=== PATIENT | male | born 1985 | race Caucasian/White ===

== ENCOUNTER 2019-10-14 20:13 | Emergency (ER) | payer MEDICARE, OTHER | END 2019-10-14 20:50 | LOC: ERS 20:13 | DX: F10.129 Alcohol abuse with intoxication, unspecified (principal); F17.210 Nicotine dependence, cigarettes, uncomplicated; F41.9 Anxiety disorder, unspecified; F31.9 Bipolar disorder, unspecified; V89.2XXA Person injured in unspecified motor-vehicle accident, traffic, initial encounter | CPT/HCPCS: 99283 ==

== ENCOUNTER 2020-01-16 21:39 | Inpatient (IN) | payer MEDICARE, OTHER ==
[2020-01-16] MEDS ORDERED: Rocuronium Bromide 10 MG/ML (10ML VIAL) ONE ×2 (21:48→23:25)
[2020-01-16] MEDS ORDERED: Ketamine 50 MG/ML (10ML VIAL) ONE (21:48)
[2020-01-16] MEDS ORDERED: Propofol 1,000 MG/100 ML VIAL IV ONE (21:50)
[2020-01-16 22:15] LABS: Actual Bicarbonate (HCO3a) 26.3 mEq/L (22-28); Analyzer IN Cardio ER; Base Excess (BEa) -5.1 mEq/L (-2.0 to +3.0); Calcium, Ionized (arterial) 1.15 mmol/L (1.12-1.30); Hemoglobin (Hb) 15.1 g/dL (14.0-18.0); Potassium - ABG Lab 3.91 mmol/L (3.70-5.30); pH, Arterial 7.13 (7.35-7.45)
[2020-01-16 22:16] LABS: CO2 Tension 80.8 mmHg (35.0-45.0); O2 Tension (PaO2), arterial 44.3 mmHg (80.0-100.0); Puncture Site RBA
--- NOTE | 2020-01-16 22:34 | RAD ---
Portable frontal chest radiograph: 01/16/2020 COMPARISON: 12/09/2017 HISTORY: Status post intubation FINDINGS: This study is performed at 9:39 PM. There is an endotracheal tube projecting over the trach eal air column terminating at the level of the clavicular heads. There is hazy pleural and parenchymal opacity within the left base. There is complete opacification of the right hemithorax, no nspecific. IMPRESSION: Endotracheal tube in place. Nonspecific pleural and parenchymal opacity in the left base and nonspecific complete opacification of the right hemithorax.
--- NOTE | 2020-01-16 22:36 | RAD ---
Frontal radiograph chest: 01/16/2020 at 9:41 PM HISTORY: Adjustment of tubes FINDINGS: This study is compared to the prior study performed 2 minutes prior. The endotracheal tube has been removed. There is a new enteric tube extending into the left upper quadrant. Nonspecific complete opacification of the right hemithorax and dense pleural and parenchymal opacity in the left base persists. IMPRESSION: Interval placement of enteric tube. Removal of endotracheal tube.
--- NOTE | 2020-01-16 22:37 | RAD ---
Frontal radiograph chest: 01/16/2020 at 10:07 PM Comparison made to prior study performed 01/16/2020 at 9:41 PM HISTORY: Reintubation, chest tube placement FINDINGS: There has been interval placement of a chest tube overlying the right lung base. There is a right pneumothorax centrally, incompletely assessed on this examination, with lobulated pleural and parenchymal opacity seen peripherally throughout the right hemithorax suggesting completely colla psed right lung, underlying pleural fluid, and/or underlying mass lesion. New endotracheal tube in place, terminating near the clavicular heads. Stable pleural-parenchymal opacity in the left base IMPRESSION: Interval placement of endotracheal tube and right chest tube with right-sided pneumothora x and nonspecific peripheral lobulated density throughout the right hemithorax. Follow-up CT advised.
--- NOTE | 2020-01-16 22:39 | RAD ---
Frontal radiograph chest: 01/16/2020 10:22 PM HISTORY: Evaluate chest following tube placement FINDINGS: When compared to the prior study performed at 10:07 PM, endotracheal tube and nasogastric t ube are stable. The right chest tube has been repositioned, now extending into the right lung apex. There is persistent left basilar pleural and parenchymal opacity. There is a right-sided pneumothorax present with peripheral lobulated soft tissue density within the right hemithorax suggesting volume loss, loculated pleural fluid, and/or underlying mass lesion. Follow-up CT suggested. IMPRESSION: Lines and tubes as above. Right-sided pneumothorax. Lobulated pleural and parenchymal opa city in the left base and within the right hemithorax as above.
[2020-01-16 22:48] LABS: Amphetamine Detected (NotDetected); Barbiturates Screen Not Detected (NotDetected); Benzodiazepine Screen Detected (NotDetected); Cocaine Metabolite Screen Not Detected (NotDetected); Medtox Control Line Valid? VALID (VALID); Medtox Reader # READER 4; Methadone Not Detected (NotDetected); Methamphetamine Not Detected (NotDetected); Opiate Screen Not Detected (NotDetected); Oxycodone Screen Not Detected (NotDetected); Phencyclidine (PCP) Not Detected (NotDetected); THC/Cannabinoid Screen Not Detected (NotDetected); Tricyclic Screen Not Detected (NotDetected)
[2020-01-16] MEDS ORDERED: Midazolam HCl 5 mg/ml Vial ONE (23:25)
[2020-01-16 23:33] LABS: PTT 28.7 sec (22.9-36.1); Prothrombin Time 13.2 sec (12.0-14.7)
[2020-01-16] MEDS ORDERED: Piperacillin/Tazobactam 3.375 GM VIAL ONE (23:37)
[2020-01-16 23:48] LABS: Acetaminophen Less than 6.0 mcg/mL (10.0-30.0); Alcohol Less than 10 mg/dL (Less than 10); CK (CPK) 133 U/L (30-200); Magnesium 1.7 mg/dL (1.6-2.6); Salicylate Less than 8.0 mg/dL (15.0-30.0)
[2020-01-16 23:50] LABS: ALT (SGPT) 25 U/L (8-55); AST (SGOT) 25 U/L (5-34); Albumin 4.5 g/dL (3.5-5.0); Alkaline Phosphatase 94 U/L (40-110); Anion Gap 16 mmol/L (10-20); BUN (Urea Nitrogen) 7 mg/dL (8.9-20.6); Bilirubin, Total 0.2 mg/dL (0.2-1.2); Calc. Creatinine Clearance 0 mL/min (70-130); Carbon Dioxide 21 mmol/L (22-29); Chloride 104 mmol/L (98-107); Estimated GFR-MDRD Greater than 90; Glucose 209 mg/dL (70-105); Lipase 30 U/L (8-78); Potassium 4.9 mmol/L (3.5-5.1); Protein, Total 7.5 g/dL (6.0-8.3); Sodium 136 mmol/L (136-145)
[2020-01-16 23:53] LABS: Hemoglobin 15.1 g/dL (14.0-18.0); Mean Corpuscular HGB CONC 31.7 g/dL (32.0-36.0); Mean Corpuscular Hemoglobin 23.6 pg (27.0-31.0); Mean Corpuscular Volume 74.3 fL (78.0-98.0); Mean Platelet Volume 9.7 fL (7.4-10.4); Platelet Count 332 thou/uL (130-400); RBC Distribution Width 12.9 % (11.5-14.5); Red Blood Cell (RBC) Count 6.42 mill/uL (4.70-6.10); White Blood Cell (WBC) Count 26.5 thou/uL (4.8-10.8)
[2020-01-16 23:54] LABS: Band 17 % (5-11); Eosinophils 2 % (0-10); Lymphocytes 13 % (21-51); MDiff Complete? YES; Microcytosis SLIGHT = 6-15 cells (100X) (0-5/hpf); Monocytes 2 % (0-10); Neutrophil 66 % (42-75); Nucleated RBC 1 % (0); Platelet Morphology Comment Appears Adequate
[2020-01-17] MEDS ORDERED: Ventilator Sedation Protocol 1 EACH FS SCH (00:27)
[2020-01-17] MEDS ORDERED: Fentanyl BOLUS 250 ML IVPB PRN (00:45)
[2020-01-17] MEDS ORDERED: Propofol BOLUS 1,000 MG/100 ML VIAL IV PRN (00:45)
[2020-01-17] MEDS ORDERED: DISCONTINUE PREVIOUS NARCOTIC PAIN MEDICATIONS AND BENZODIAZEPINES FS SCH (00:45)
[2020-01-17] MEDS ORDERED: Morphine 2 MG/ML VIAL SLOW IVP PRN (00:45)
[2020-01-17] MEDS: Sodium Chloride 0.9% 1,000 ML IV SCH ×4 (01:44→20:01)
[2020-01-17] MEDS: Propofol 1,000 MG/100 ML VIAL IV PRN ×7 (01:44→21:42)
--- NOTE | 2020-01-17 01:45 | CON ---
DATE OF CONSULTATION: 01/17/2020 CONSULTING PHYSICIAN: Marinaist . REASON FOR CONSULTATION: Intubated patient with opacification of the right chest. This encompassed 1 hour of critical care time that took place 1059pm to 1159pm 01/15. HISTORY OF PRESENT ILLNESS: A 34-year-old male, who was apparently found down at home in vomitus debris. He was brought to the emergency room and intubated for unresponsiveness. Initially, it was noted that his right chest was opacified and the emergency room physician placed a chest tube on that side. He felt that the initial chest tube might have been underneath the diaphragm, so he took that out and replaced it in a more cephalad position. Despite that, patient's x-ray continued to show whiteout and I was called to evaluate the patient for emergent bronchoscopy. On my arrival to the emergency room, the patient's O2 saturation was in the mid 60s. I did a bronchoscopy on him with removal of copious food debris. It took about an hour to remove all the debris. PAST MEDICAL HISTORY: 1. K2 abuse. 2. Methamphetamine abuse. 3. Suicidal ideation. 4. Bipolar disorder. 5. Seizure disorder. PAST SURGICAL HISTORY: None. MEDICATIONS: Prior to admission, not known. ALLERGIES: NONE. SOCIAL HISTORY: Methamphetamine abuser, K2 abuser. Do not know about alcohol or tobacco use. FAMILY MEDICAL HISTORY: Apparently unremarkable. REVIEW OF SYSTEMS: Cannot be obtained as the patient is intubated. PHYSICAL EXAMINATION: VITAL SIGNS: Heart rate 115, blood pressure 105/73, O2 saturation 90%, and temperature 98. GENERAL: He is a disheveled appearing male. He is intubated. He has multiple tattoos over skin. HEENT: Pupils are equal, round, and reactive to light. Oropharynx is clear. NECK: No adenopathy or JVD. LUNGS: Diminished breath sounds on the right compared to the left. CARDIOVASCULAR: S1 and S2. Tachycardic. ABDOMEN: Soft and nontender. EXTREMITIES: No clubbing, cyanosis, or edema. X-RAYS: Reviewed. I actually doubt that the first two placement was innerabdominal based on the appearance of the x-ray, but I completely understand why it was taken out and replaced in a more cephalad position. LABORATORY DATA: White blood cell count 26.5, hematocrit 47, and platelet count 332. INR 1.0 and PTT 28.7. PH 7.13, pCO2 of 80, and pO2 of 44 and that was before bronchoscopy. Sodium 136, potassium 4.9, chloride 104, CO2 of 21, BUN 7, and creatinine 0.9. Lactate 1.4, total bilirubin 0.2. Drug screen showed amphetamines and benzos. ASSESSMENT: 1. Aspiration of food particles. 2. Likely substance overdose. 3. Respiratory failure requiring mechanical ventilation. 4. Right-sided chest tube. 5. Acute respiratory distress syndrome. PLAN: 1. IV antibiotics with Zosyn. 2. Mechanical ventilation, bilevel. 3. Sedation. 4. GI prophylaxis with Protonix. 5. Second-look bronchoscopy. Job ID: [id number] [facility]
[2020-01-17] MEDS: Lorazepam 2 MG/ML VIAL SLOW IVP PRN ×7 (01:47→23:46)
--- NOTE | 2020-01-17 01:51 | OP ---
DATE OF PROCEDURE: 01/16/2020 PROCEDURE PERFORMED: Emergent bronchoscopy. INDICATIONS FOR PROCEDURE: This is a 34-year-old male who was found down on presentation to the ER, he had complete opacification of his right chest that did not re-expand of chest tube placement by the emergency room physician. ANESTHESIA: The patient was on mechanical ventilation and sedated with propofol and paralyzed with rocuronium. DESCRIPTION OF PROCEDURE: While the patient was on mechanical ventilation, an adapter was placed at the tip of the endotracheal tube. A 2.8 Ambu bronchoscope was placed into the endotracheal tube with the patient on 100% oxygen. His ET tube was clear. Dina was sharp. There was a large amount of food debris in the right mainstem bronchus extending into the right upper lobe, right middle lobe, and right lower lobe. I used copious irrigation with normal saline, morcellation with forceps and retrieval with a urology basket to remove as much of the food debris as I could until it seemed clear. The left mainstem bronchus was clear, but there were some food debris present in left lower lobe, this was also removed with forceps. The patient tolerated the procedure well with improvement in his oxygenation from mid 60s to low 90s. He will likely need a repeat bronchoscopy tomorrow morning. Job ID: [id number]
[2020-01-17] MEDS: Vecuronium 10 MG VIAL IVP PRN ×2 (01:52→03:44)
[2020-01-17] MEDS: Sterile Water 10 ML VIAL IVP PRN ×2 (01:52→03:44)
[2020-01-17] MEDS: fentaNYL Citrate/PF 2,000 MCG in Sodium Chloride 0.9% 60 ML IV SCH ×2 (02:11→18:14)
[2020-01-17 02:20] VITALS: BMI 30.8
[2020-01-17 03:39] LABS: Anion Gap 16 mmol/L (10-20); BUN (Urea Nitrogen) 8 mg/dL (8.9-20.6); Calc. Creatinine Clearance 165 mL/min (70-130); Calcium 8.1 mg/dL (7.8-10.44); Carbon Dioxide 22 mmol/L (22-29); Chloride 106 mmol/L (98-107); Estimated GFR-MDRD Greater than 90; Glucose 119 mg/dL (70-105); Potassium 4.7 mmol/L (3.5-5.1); Sodium 139 mmol/L (136-145)
--- NOTE | 2020-01-17 03:44 | PDOC.HHP ---
Hospitalist HPI - History of Present Illness Respiratory failure, aspiration History of Present Illness: Patient is a 34 year old male with PMH anxiety, bipolar disorder, depression who presents to ED intubated after aspiration event at home. Patient was found unresponsive in backyard by his mother, presumably after using substances, unknown how long he was on ground, patient was rolled over and vomited with significant aspiration of emesis, EMS called and patient was intubated by EMS. He required ketamine, versed, rocuronium for sedation/paralysis. In ED, CXR w/ opacified R hemithorax, no significant breath sounds on that side, Dr South called and performed emergent bronchoscopy which reportedly revealed significant emesis which was aspirated. A chest tube was also placed on R side. Patient oxy genation improved after bronchoscopy. Patient was given empiric zosyn, admitted to ICU for further care. With regards to social history, patient drinks socially, known abuse of benzodiazepine 1 month ago, also has used K2, he smokes cigarettes, UDS positive for methamphetamine in ED. Hospitalist ROS - Review of Systems ROS unobtainable: due to endotracheal tube - Medication Medications: Active Medications Generic Name Dose Route Start Last Admin Trade Name Freq PRN Reason Stop Dose Admin Albuterol/Ipratropium 3 ml 01/17/20 02:30 01/17/20 02:47 Ipratropium/Albuterol Sulfate 3 Ml Neb NEB 3 ml [id number] GEORGI Administration Sodium Chloride 1,000 mls @ 125 mls/hr 01/17/20 00:30 01/17/20 01:44 Normal Saline 0.9% IV 1,000 mls .Q8H GEORGI Administration Fentanyl Citrate 2,000 mcg/ 100 mls @ 0 mls/hr 01/17/20 00:45 01/17/20 02:11 Sodium Chloride IV 02/16/20 00:45 100 mls INF GEORGI Administration Protocol Per Protocol Lorazepam 2 mg 01/17/20 00:45 01/17/20 01:47 Lorazepam 2 Mg/Ml Vial SLOW IVP 02/16/20 00:45 2 mg Q1H PRN Administration Breakthrough agitation Propofol 1,000 mg 01/17/20 00:45 01/17/20 01:44 Propofol 1,000 Mg/100 Ml Vial IV 02/16/20 00:45 1,000 mg INF PRN Administration TO ACHIEVE GOAL RASS Protocol Sterile Water 10 ml 01/17/20 00:41 01/17/20 01:52 Sterile Water 10 Ml Vial IVP 10 ml PRN PRN Administration NEEDED FOR RECONSTITUTION Vecuronium [place] 10 mg 01/17/20 00:31 01/17/20 01:52 Vecuronium 10 Mg Vial IVP 10 mg Q30MIN PRN Administration Agitation Hospitalist History - Past Medical History Other Medical History: anxiety, bipolar, depression - Past Surgical History Past Surgical History: reports: no pertinent history - Family History Family History: reports: no pertinent history - Social History Other Social History: patient drinks socially, known abuse of benzodiazepine 1 month ago, also has used K2, he smokes cigarettes, UDS positive for methamphetamine in ED. - Exam General - other findings: intubated, sedated Eye: PERRL, anicteric sclera ENT: normocephalic atraumatic, no oropharyngeal lesions, moist mucosa Neck: supple, symmetric, no JVD, no thyromegaly, no lymphadenopathy, no carotid bruit Heart: RRR, no murmur, no gallops, no rubs, normal peripheral pulses Respiratory: CTAB, no wheezes, no rales, no ronchi, normal chest expansion, no tachypnea, normal percussion Gastrointestinal: soft, non-tender, non-distended, normal bowel sounds, no palpable masses, no hepatomegaly, no splenomegaly, no bruit Extremities: no cyanosis, no clubbing, no edema Skin: normal turgor, no lesions, no rashes Neurological - other findings: sedated, RASS -2 Musculoskeletal: normal tone, normal strength, no muscle wasting Psychiatric - other findings: unable to evaluate Hospitalist Results - Labs Result Diagrams: 01/16/20 23:18 01/17/20 03:06 Lab results: WBC 26.5 thou/uL (4.8-10.8) H 01/16/20 23:18 Hgb 15.1 g/dL (14.0-18.0) 01/16/20 23:18 Hct 47.7 % (42.0-52.0) 01/16/20 23:18 MCV 74.3 fL (78.0-98.0) L 01/16/20 23:18 Plt Count 332 thou/uL (130-400) 01/16/20 23:18 Band Neuts % (Manual) 17 % (5-11) H 01/16/20 23:18 ABG pH 7.13 (7.35-7.45) L* 01/16/20 22:04 ABG pCO2 80.8 mmHg (35.0-45.0) H* 01/16/20 22:04 ABG pO2 44.3 mmHg (80.0-100.0) L* 01/16/20 22:04 Sodium 139 mmol/L (136-145) 01/17/20 03:06 Potassium 4.7 mmol/L (3.5-5.1) 01/17/20 03:06 Chloride 106 mmol/L (98-107) 01/17/20 03:06 Carbon Dioxide 22 mmol/L (22-29) 01/17/20 03:06 BUN 8 mg/dL (8.9-20.6) L 01/17/20 03:06 Creatinine 0.92 mg/dL (0.7-1.3) 01/17/20 03:06 Glucose 119 mg/dL (70-105) H 01/17/20 03:06 Lactic Acid 1.4 mmol/L (0.5-2.2) 01/16/20 23:18 Calcium 8.1 mg/dL (7.8-10.44) 01/17/20 03:06 Total Bilirubin 0.2 mg/dL (0.2-1.2) 01/16/20 23:18 AST 25 U/L (5-34) 01/16/20 23:18 ALT 25 U/L (8-55) 01/16/20 23:18 Alkaline Phosphatase 94 U/L (40-110) 01/16/20 23:18 Creatine Kinase 133 U/L (30-200) 01/16/20 23:18 Troponin I Less than 0.010 ng/mL (< 0.028) 01/16/20 23:18 Serum Total Protein 7.5 g/dL (6.0-8.3) 01/16/20 23:18 Albumin 4.5 g/dL (3.5-5.0) 01/16/20 23:18 Lipase 30 U/L (8-78) 01/16/20 23:18 Additional comment: VITAL SIGNS MonJan 17, 2020 00:39 PRANAV Brito, Robin BP: 109/72 (Left Arm) MAP: 84 Pulse: 103 Resp: 16 O2 sat: 92 on (Ventilator) Time: 01/17/2020 00:39. ED documents, labs, imaging reports reviewed Hospitalist H&P A/P - Plan Plan: Patient is a 34 year old male with PMH anxiety, bipolar disorder, depression who presents to ED intubated after aspiration event at home. # acute hypoxic and hypercapneic respiratory failure # aspiration pneumonitis and possible pneumonia # substance abuse - methamphetamine and benzodiazepine on UDS, also suspected K2 use # leukocysosis - suspect reactive to above stressors Patient was found unresponsive in backyard by his mother, presumably after using substances, unknown how long he was on ground, patient was rolled over and vomited with significant aspiration of emesis, EMS called and patient was intubated by EMS. He required ketamine, versed, rocuronium for sedat ion/paralysis. In ED, CXR w/ opacified R hemithorax, no significant breath sounds on that side, Dr South called and performed emergent bronchoscopy which reportedly revealed significant emesis which was aspirated. A chest tube was also placed on R side. Patient oxygenation improved after bronchoscopy. Patient was given empiric zosyn, admitted to ICU for further care. With regards to social history, patient drinks socially, known abuse of benzodiazepine 1 month ago, also has used K2, he smokes cigarettes, UDS positive for methamphetamine and benzodiazepine in ED. - admit to ICU - continue zosyn, steroids - appreciate pulmonary Dr South assistance, likely to need repeat bronchoscopy tomorrow # hyperglycemia - no dx of DM, will start SSI and order A1C # history of bipolar disorder, anxiety, psychiatric disorders and reported history of suicide ideation - resume home medications once appropriate # DVT/GI ppx Full code
[2020-01-17] MEDS ORDERED: Dextrose 5% in Water 1,000 ML IV PRN (03:55)
[2020-01-17] MEDS ORDERED: Dextrose 50% Abboject 50 ML SYRINGE SLOW IVP PRN (03:55)
[2020-01-17] MEDS: Piperacillin/Tazobactam 3.375 GM in Sodium Chloride 0.9% 100 ML IVPB SCH ×4 (05:14→23:46)
[2020-01-17] MEDS: methylPREDNISolone Sod Succ 40 MG VIAL IVP SCH ×4 (05:14→23:47)
[2020-01-17] MEDS ORDERED: Magnesium 2 GM/50 ML 2 GM in Premix Bag 1 BAG IVPB SCH (06:45)
[2020-01-17] MEDS ORDERED: Electrolyte Replacement Protocol FS PRN (06:45)
[2020-01-17 07:18] LABS: Actual Bicarbonate (HCO3a) 20.8 mEq/L (22-28); Base Excess (BEa) -3.2 mEq/L (-2.0 to +3.0); CO2 Tension 34.3 mmHg (35.0-45.0); Calcium, Ionized (arterial) 1.09 mmol/L (1.12-1.30); Carboxyhemoglobin (COHb) 0.3 gm% (0.0-3.0); Hemoglobin (Hb) 14.3 g/dL (14.0-18.0); O2 Tension (PaO2), arterial 87.3 mmHg (80.0-100.0); Potassium - ABG Lab 4.17 mmol/L (3.70-5.30)
[2020-01-17 07:19] LABS: Puncture Site RRA
[2020-01-17 07:20] LABS: ALV-art Gradient 226.325 mmHg (0-20)
--- NOTE | 2020-01-17 08:27 | OP ---
DATE OF PROCEDURE: 01/17/2020 PROCEDURE PERFORMED: Bronchoscopy. PREOPERATIVE DIAGNOSIS: Right lung atelectasis secondary to massive aspiration. POSTOPERATIVE DIAGNOSIS: Right lung atelectasis secondary to massive aspiration. ANESTHESIA: None. DESCRIPTION OF PROCEDURE: A 2.8 Olympus bronchoscope was inserted down the patient's endotracheal tube while he was on volume-cycled ventilation. This was a second-look procedure after initially removing most of the debris last night. There were scant mucoid secretions present in the right lower lobe. These were lavaged with saline until clear. The right upper lobe was clear. The right middle lobe was clear. The right mainstem bronchus was clear. The rebekah was sharp. The left lower lobe had some scant mucoid secretions, which were lavaged with saline and aspirated until completion. The left upper lobe was clear. The left mainstem bronchus was clear. The patient tolerated the procedure well. Job ID: [id number]
--- NOTE | 2020-01-17 08:36 | PRG ---
DATE OF SERVICE: 01/17/2020 35 minutes of critical care time. SUBJECTIVE: The patient remains intubated on mechanical ventilation. He will wake up once sedation is lessened. OBJECTIVE: VITAL SIGNS: Temperature 98.7, pulse 90, blood pressure 118/73, O2 saturation 100%. Intake 624, output 680. HEENT: Unremarkable. NECK: No JVD. LUNGS: Clear breath sounds bilaterally. CARDIAC: S1 and S2. Regular. ABDOMEN: Soft. EXTREMITIES: No edema. DIAGNOSTIC STUDIES: Chest x-ray shows no leak. LABORATORY DATA: ABG; pH 7.40, pCO2 of 34, pO2 of 87 on bilevel rate 22, high pressure 30, low pressure 12, FiO2 of 50%. Sodium 139, potassium 4.7, chloride 106, CO2 of 22, BUN 8, creatinine 0.9, glucose 116. Chest x-ray showed improvement in the right-sided atelectasis. He has infiltrative change in the base. ASSESSMENT: 1. Massive aspiration with right lung atelectasis. 2. Chest tube placement on the right by emergency room physician who was thinking the patient had a massive right effusion. 3. Acute respiratory failure requiring mechanical ventilation. PLAN: 1. Performed a second-look bronchoscopy today and there were some scant mucoid secretions present bilaterally, which were lavaged with saline, aspirated. 2. I would like to leave the chest tube in for another day or two. There is a question of whether or not, first chest tube was placed through the diaphragm into the abdomen. Therefore, I would like to give it a day or so and make sure no development of infection in that space before we pull the tube out. 3. Continue antibiotics. 4. I have switched him over to SIMV ventilation. 5. We will continue low-dose steroids, nebulization treatments, and IV fluids. Job ID: [id number]
[2020-01-17] MEDS: Metoclopramide HCl 10 MG/2 ML VIAL IVP SCH ×3 (09:09→20:00)
[2020-01-17] MEDS: Pantoprazole 40 MG VIAL IVP SCH (09:10)
--- NOTE | 2020-01-17 09:10 | RAD ---
CHEST 1 VIEW PORTABLE: Date: 01/17/2020 HISTORY: Pneumonia. FINDINGS: Right chest tube in place. Possible very tiny residual pneumothorax. Alveolar parenchymal changes in the right lung, more confluent in the right base, as well as some patchy left perihilar parenchymal c hanges. NG tube and endotracheal tube in satisfactory location. IMPRESSION: Evidence for patchy alveolar pneumonia, more confluent in the right base. Possible very tiny apical p neumothorax, but no significant residual pneumothorax. POS: RRE
[2020-01-17 10:04] LABS: Mean Corpuscular HGB CONC 31.3 g/dL (32.0-36.0); Mean Corpuscular Volume 73.6 fL (78.0-98.0); Mean Platelet Volume 10.1 fL (7.4-10.4); Platelet Count 241 thou/uL (130-400); RBC Distribution Width 12.7 % (11.5-14.5); Red Blood Cell (RBC) Count 5.63 mill/uL (4.70-6.10); White Blood Cell (WBC) Count 18.9 thou/uL (4.8-10.8)
[2020-01-17] MEDS: HumaLOG 300 UNITS/3 ML VIAL SC PRN ×3 (12:02→20:06)
[2020-01-17 12:50] LABS: SARS-CoV-2 MS2 Positive; SARS-CoV-2 N Gene Negative; SARS-CoV-2 S Gene Negative; SARS-CoV-2 by NAA Not Detected (NotDetected); SARS-CoV-2 orf1ab Negative
--- NOTE | 2020-01-17 15:24 | PDOC.HOSPP ---
- Subjective Encounter Date: 01/17/20 Encounter Time: 09:00 Subjective: The patient is still intubated. He had second look bronchoscopy this morning. THe patient was thrashing around was reoriented to where he was . - Objective Vital Signs & Weight: Vital Signs (12 hours) Temp Pulse Resp BP Pulse Ox 01/17/20 14:00 22 H 01/17/20 12:46 87 93/52 L 01/17/20 12:00 99.2 F 22 H 100 01/17/20 10:42 86 01/17/20 10:00 22 H 01/17/20 08:00 22 H 98 01/17/20 07:23 92 01/17/20 07:00 98.7 F 01/17/20 06:00 22 H 01/17/20 04:00 99.7 F H 22 H Weight Admit Weight 227 lb 4.745 oz Weight 227 lb 4.745 oz Most Recent Monitor Data Heart Rate from ECG 90 NIBP 114/63 NIBP BP-Mean 80 Respiration from ECG 22 SpO2 100 I&O: 01/16/20 01/17/20 01/18/20 06:59 06:59 06:59 Intake Total 624 200 Output Total 680 865 Balance -56 -665 Result Diagrams: 01/17/20 09:47 01/17/20 03:06 Additional Labs: Accuchecks 01/17/20 11:52 POC Glucose 161 H Hospitalist ROS - Review of Systems Constitutional: denies: fever, chills - Medication Medications: Active Medications Generic Name Dose Route Start Last Admin Trade Name Freq PRN Reason Stop Dose Admin Albuterol/Ipratropium 3 ml 01/17/20 02:30 01/17/20 10:41 Ipratropium/Albuterol Sulfate 3 Ml Neb NEB 3 ml [id number] GEORGI Administration Sodium Chloride 1,000 mls @ 125 mls/hr 01/17/20 00:30 01/17/20 11:19 Normal Saline 0.9% IV 1,000 mls .Q8H GEORGI Administration Piperacillin Sod/Tazobactam 100 mls @ 200 mls/hr 01/17/20 06:00 01/17/20 11:19 Sod 3.375 gm/ Sodium Chloride IVPB 100 mls Q6HR GEORGI Administration Fentanyl Citrate 2,000 mcg/ 100 mls @ 0 mls/hr 01/17/20 00:45 01/17/20 02:11 Sodium Chloride IV 02/16/20 00:45 100 mls INF GEORGI Administration Protocol Per Protocol Thiamine HCl 100 mg/ Sodium 51 mls @ 100 mls/hr 01/17/20 09:00 01/17/20 09:09 Chloride IVPB 01/20/20 21:31 51 mls Q12HR GEORGI Administration Insulin Human Lispro 0 units 01/17/20 03:55 01/17/20 12:02 Humalog 300 Units/3 Ml Vial SC 2 unit .MILD SLIDING SCALE PRN Administration Mild Correctional Scale Lorazepam 2 mg 01/17/20 00:45 01/17/20 12:47 Lorazepam 2 Mg/Ml Vial SLOW IVP 02/16/20 00:45 2 mg Q1H PRN Administration Breakthrough agitation Methylprednisolone Sodium Succinate 20 mg 01/17/20 06:00 01/17/20 11:19 Methylprednisolone Sod Succ 40 Mg Vial IVP 20 mg Q6HR GEORGI Administration Metoclopramide HCl 10 mg 01/17/20 09:00 01/17/20 15:14 Metoclopramide Hcl 10 Mg/2 Ml Vial IVP 10 mg Q6H GEORGI Administration Pantoprazole Sodium 40 mg 01/17/20 09:00 01/17/20 09:10 Pantoprazole 40 Mg Vial IVP 40 mg DAILY GEORGI Administration Propofol 1,000 mg 01/17/20 00:45 01/17/20 15:14 Propofol 1,000 Mg/100 Ml Vial IV 02/16/20 00:45 1,000 mg INF PRN Administration TO ACHIEVE GOAL RASS Protocol Sterile Water 10 ml 01/17/20 00:41 01/17/20 03:44 Sterile Water 10 Ml Vial IVP 10 ml PRN PRN Administration NEEDED FOR RECONSTITUTION Vecuronium [place] 10 mg 01/17/20 00:31 01/17/20 03:44 Vecuronium 10 Mg Vial IVP 10 mg Q30MIN PRN Administration Agitation - Exam General - other findings: intubated, follows commands Eye: PERRL, anicteric sclera ENT: normocephalic atraumatic, no oropharyngeal lesions Neck: no JVD Heart: RRR, no murmur, no gallops, no rubs Respiratory - other findings: diminished breath sounds bilaterally Gastrointestinal: soft, non-tender, non-distended, normal bowel sounds Extremities: no cyanosis, no clubbing, no edema Skin: normal turgor, no lesions, no rashes Hosp A/P - Plan Chest Xray 01/15: nonspecific pleural and parenchymal opacity in the left base and nonspecific complete opacification of the right hemothorax Chest X ray 01/16: patchy alveolar pneumonia, more confluent in the right base. Tiny apical pneumothoraxi but no residual This is 34 year old male who presented with aspiration event at home. He had urgent bronchoscopy and food was suctioned out of lung. He had second look bronchoscopy today and had secretions suctioned out Acute aspiration pneumonia - s/p bronchoscpy 01/15 and 01/16 with significant secretions aspirated. Chest xray showed complete opacification right hemothorax 01/15, chest X ray 01/16 showing patchy alveolar pneumonia, possibly tiny right apical pneumothorax - chest tubes in place currently - continue IV zosyn and IV steroids - WBC downtrending to 18.9 History of meth abuse - monitor for withdrawals Possible alcohol abuse? - continue thiamine and folic acid Anemia - Hb down to 13, possibly dilutional, will monitor DVT prophylaxis: will resume lovenox Code status: assume full code
[2020-01-17] MEDS ORDERED: Enoxaparin Sodium 40 MG/0.4 ML SYRINGE SC SCH (15:45)
[2020-01-18] MEDS: Sterile Water 10 ML VIAL IVP PRN ×2 (00:19→03:27)
[2020-01-18] MEDS: Vecuronium 10 MG VIAL IVP PRN ×2 (00:19→03:27)
[2020-01-18] MEDS: Propofol 1,000 MG/100 ML VIAL IV PRN ×6 (00:50→23:20)
[2020-01-18] MEDS: Sodium Chloride 0.9% 1,000 ML IV SCH ×4 (01:03→23:21)
[2020-01-18] MEDS: Metoclopramide HCl 10 MG/2 ML VIAL IVP SCH ×4 (03:27→20:01)
[2020-01-18 03:48] LABS: Hemoglobin A1c 5.1 % (4.0-6.0)
[2020-01-18 04:05] LABS: #Lymphocytes 0.8 thou/uL (1.20-3.40); #Monocytes 0.2 thou/uL (0.11-0.59); #Neutrophils 12.3 thou/uL (1.40-6.50); %Basophils 0.2 % (0.0-1.0); %Eosinophils 0.1 % (0.0-10.0); %Lymphocytes 5.8 % (21.0-51.0); %Monocytes 1.4 % (0.0-10.0); %Neutrophils 92.5 % (42.0-75.0); Hemoglobin 12.4 g/dL (14.0-18.0); Mean Corpuscular HGB CONC 31.3 g/dL (32.0-36.0); Mean Corpuscular Hemoglobin 23.2 pg (27.0-31.0); Mean Corpuscular Volume 74.1 fL (78.0-98.0); Mean Platelet Volume 9.6 fL (7.4-10.4); Platelet Count 223 thou/uL (130-400); RBC Distribution Width 12.9 % (11.5-14.5); Red Blood Cell (RBC) Count 5.33 mill/uL (4.70-6.10); White Blood Cell (WBC) Count 13.3 thou/uL (4.8-10.8)
[2020-01-18 04:07] LABS: Anion Gap 14 mmol/L (10-20); BUN (Urea Nitrogen) 8 mg/dL (8.9-20.6); Calc. Creatinine Clearance 190 mL/min (70-130); Calcium 8.3 mg/dL (7.8-10.44); Carbon Dioxide 21 mmol/L (22-29); Chloride 110 mmol/L (98-107); Estimated GFR-MDRD Greater than 90; Glucose 140 mg/dL (70-105); Magnesium 2.3 mg/dL (1.6-2.6); Potassium 3.8 mmol/L (3.5-5.1); Sodium 141 mmol/L (136-145)
[2020-01-18 04:09] LABS: Phosphorus 1.2 mg/dL (2.3-4.7)
[2020-01-18] MEDS: methylPREDNISolone Sod Succ 40 MG VIAL IVP SCH ×4 (05:03→23:19)
[2020-01-18] MEDS: Piperacillin/Tazobactam 3.375 GM in Sodium Chloride 0.9% 100 ML IVPB SCH ×4 (05:04→23:19)
[2020-01-18] MEDS ORDERED: Potassium Phosphate 22 MMOL in Sodium Chloride 0.9% 250 ML 250 ML IVPB SCH (05:30)
[2020-01-18 07:05] LABS: Actual Bicarbonate (HCO3a) 22.3 mEq/L (22-28); CO2 Tension 36.7 mmHg (35.0-45.0); Calcium, Ionized (arterial) 1.17 mmol/L (1.12-1.30); Carboxyhemoglobin (COHb) 0.4 gm% (0.0-3.0); Hemoglobin (Hb) 12.7 g/dL (14.0-18.0); O2 Tension (PaO2), arterial 79.2 mmHg (80.0-100.0); Potassium - ABG Lab 3.88 mmol/L (3.70-5.30)
[2020-01-18 07:06] LABS: ALV-art Gradient 160.125 mmHg (0-20); Puncture Site RRA
[2020-01-18] MEDS: fentaNYL Citrate/PF 2,000 MCG in Sodium Chloride 0.9% 60 ML IV SCH ×2 (07:41→19:54)
[2020-01-18] MEDS: Enoxaparin Sodium 40 MG/0.4 ML SYRINGE SC SCH (09:28)
[2020-01-18] MEDS: Pantoprazole 40 MG VIAL IVP SCH (09:28)
--- NOTE | 2020-01-18 11:55 | PRG ---
DATE OF SERVICE: 01/18/2020 SUBJECTIVE: He has done well overnight with good oxygen status. He is sedated with fairly high doses of medication and level of responsiveness is quite diminished. He is making spontaneous ventilatory efforts. From an oxygen perspective, he has improved and I would like to move toward extubation, but we need him to be more alert. Unfortunately, this is probably going to require the sedation be discontinued and he be prepared for extubation very briefly thereafter. Chest x-ray shows no leak or drainage. PHYSICAL EXAMINATION: VITAL SIGNS: Blood pressure 120/71, heart rate is 66, saturation 100% on 35% via ventilator. GENERAL: He is sedated. He is orally intubated. He has no adenopathy or bruits. LUNGS: Showed rhonchi on the right. Chest tube is on the right. There is no wheezing. HEART: Regular rate and rhythm. ABDOMEN: Soft. There is no organomegaly. EXTREMITIES: He has no edema. He has no trauma of his lower extremities. LABORATORY DATA: White count 13,300, hemoglobin is 12.4, platelet count 223,000. Blood gas shows pH 7.4, CO2 of 37, PO2 of 80, and bicarbonate of 22. Electrolytes include sodium 141, potassium 3.8, chloride 110, CO2 is 21, BUN 8, creatinine 0.8, glucose from 140 to 170. Chest x-ray shows the right chest tube. There is no pneumothorax. There is area of consolidation or loculated effusion in the right base. This is markedly improved compared to the previous films. IMPRESSION: 1. Probable overdose. 2. Presumed aspiration pneumonia with mucus plugging and complete opacification of the right hemithorax, now improved with bronchoscopy. There is no evidence that the patient had pneumothorax. Chest tube will be left in place as long as he is on the ventilator, although I have converted to water seal. 3. Restlessness and agitation, on maximal doses of sedation. PLAN: Hemodynamically and from a blood gas perspective, he is doing well. Radiographically, he is improved. I think that we should move toward reducing his sedation and be prepared for extubation. He does not have significant underlying cardiopulmonary disease and I would expect he could be extubated without tremendous difficulty. Critical care time 33 minutes. Job ID: [id number]
--- NOTE | 2020-01-18 12:34 | PDOC.HOSPP ---
- Subjective Encounter Date: 01/18/20 Encounter Time: 07:40 Subjective: on vent, is sedated - Objective Vital Signs & Weight: Vital Signs (12 hours) Temp Pulse Resp BP Pulse Ox 01/18/20 10:43 66 120/71 01/18/20 10:00 18 01/18/20 08:00 99 F 18 100 01/18/20 07:45 66 134/85 01/18/20 06:00 22 H 01/18/20 04:00 97.6 F 22 H 01/18/20 02:37 80 134/83 01/18/20 02:36 80 22 H 100 01/18/20 02:00 22 H Weight Admit Weight 227 lb 4.745 oz Weight 227 lb 4.745 oz Most Recent Monitor Data Heart Rate from ECG 88 NIBP 127/79 NIBP BP-Mean 95 Respiration from ECG 18 SpO2 100 I&O: 01/17/20 01/18/20 01/19/20 06:59 06:59 06:59 Intake Total 624 4272.9 Output Total 680 4130 620 Balance -56 142.9 -620 Result Diagrams: 01/18/20 03:21 01/18/20 03:21 Additional Labs: Accuchecks 01/17/20 01/17/20 20:05 18:00 POC Glucose 151 H 168 H Hospitalist ROS - Medication Medications: Active Medications Generic Name Dose Route Start Last Admin Trade Name Freq PRN Reason Stop Dose Admin Albuterol/Ipratropium 3 ml 01/17/20 02:30 01/18/20 10:43 Ipratropium/Albuterol Sulfate 3 Ml Neb NEB 3 ml [id number] GEORGI Administration Enoxaparin Sodium 40 mg 01/18/20 09:00 01/18/20 09:28 Enoxaparin Sodium 40 Mg/0.4 Ml Syringe SC 40 mg 0900 GEORGI Administration Sodium Chloride 1,000 mls @ 125 mls/hr 01/17/20 00:30 01/18/20 06:39 Normal Saline 0.9% IV 1,000 mls .Q8H GEORGI Administration Piperacillin Sod/Tazobactam 100 mls @ 200 mls/hr 01/17/20 06:00 01/18/20 11:43 Sod 3.375 gm/ Sodium Chloride IVPB 100 mls Q6HR GEORGI Administration Fentanyl Citrate 2,000 mcg/ 100 mls @ 0 mls/hr 01/17/20 00:45 01/18/20 07:41 Sodium Chloride IV 02/16/20 00:45 100 mls INF GEORGI Administration Protocol Per Protocol Thiamine HCl 100 mg/ Sodium 51 mls @ 100 mls/hr 01/17/20 09:00 01/18/20 09:28 Chloride IVPB 01/20/20 21:31 51 mls Q12HR GEORGI Administration Insulin Human Lispro 0 units 01/17/20 03:55 01/17/20 20:06 Humalog 300 Units/3 Ml Vial SC 2 unit .MILD SLIDING SCALE PRN Administration Mild Correctional Scale Lorazepam 2 mg 01/17/20 00:45 01/17/20 23:46 Lorazepam 2 Mg/Ml Vial SLOW IVP 02/16/20 00:45 2 mg Q1H PRN Administration Breakthrough agitation Methylprednisolone Sodium Succinate 20 mg 01/17/20 06:00 01/18/20 11:44 Methylprednisolone Sod Succ 40 Mg Vial IVP 20 mg Q6HR GEORGI Administration Metoclopramide HCl 10 mg 01/17/20 09:00 01/18/20 10:08 Metoclopramide Hcl 10 Mg/2 Ml Vial IVP 10 mg Q6H GEORGI Administration Pantoprazole Sodium 40 mg 01/17/20 09:00 01/18/20 09:28 Pantoprazole 40 Mg Vial IVP 40 mg DAILY GEORGI Administration Propofol 1,000 mg 01/17/20 00:45 01/18/20 06:39 Propofol 1,000 Mg/100 Ml Vial IV 02/16/20 00:45 1,000 mg INF PRN Administration TO ACHIEVE GOAL RASS Protocol Sterile Water 10 ml 01/17/20 00:41 01/18/20 03:27 Sterile Water 10 Ml Vial IVP 10 ml PRN PRN Administration NEEDED FOR RECONSTITUTION Vecuronium [place] 10 mg 01/17/20 00:31 01/18/20 03:27 Vecuronium 10 Mg Vial IVP 10 mg Q30MIN PRN Administration Agitation - Exam Eye: PERRL, anicteric sclera ENT: no oropharyngeal lesions, dry oral mucosa Neck: supple, no JVD Heart: RRR, no murmur Respiratory: no wheezes, no rales, rhonchi Gastrointestinal: soft, non-tender, non-distended, normal bowel sounds Extremities: no cyanosis, no edema Neurological: cranial nerve grossly intact, no focal deficits Hosp A/P (1) Acute respiratory failure with hypoxia Code(s): J96.01 - ACUTE RESPIRATORY FAILURE WITH HYPOXIA Status: Acute (2) Aspiration pneumonia Code(s): J69.0 - PNEUMONITIS DUE TO INHALATION OF FOOD AND VOMIT Status: Acute Qualifiers: Aspiration pneumonia type: due to regurgitated food Laterality: right (3) Substance abuse Code(s): F19.10 - OTHER PSYCHOACTIVE SUBSTANCE ABUSE, UNCOMPLICATED Status: Chronic (4) Bipolar disorder Code(s): F31.9 - BIPOLAR DISORDER, UNSPECIFIED Status: Chronic - Plan is on zosyn, steroids, nebs is s/p bronchoscopy with clearing of aspirated material from right lung cxr shows clearing weaning per pulm advice continue protonix, iv fluids hemostable
--- NOTE | 2020-01-18 12:56 | EKG ---
Test Reason : Blood Pressure : / mmHG Vent. Rate : 102 BPM Atrial Rate : 102 BPM P-R Int : 154 ms QRS Dur : 108 ms QT Int : 316 ms P-R-T Axes : 058 033 057 degrees QTc Int : 411 ms Sinus tachycardia Minimal voltage criteria for LVH, may be normal variant Borderline ECG Confirmed by BARB CHAMBERS ([id number]), greeting card editor ANAID SHAIKH ([id number]) on 01/18/2020 12:56:28 PM Referred By: Confirmed By:BARB Pride
--- NOTE | 2020-01-18 15:28 | RAD ---
ONE VIEW CHEST: 01/18/20 Pneumonia, follow-up evaluation. COMPARISON: 01/17/20. FINDINGS: Endotracheal tube, nasogastric tube, and right sided thoracostomy tube remain in place and unchanged in position. No obvious pneumothorax is identified. There is area of dense opacity/consolidation seen at the right lung base with patchy air space opacity again seen at the medial aspect left lung base. No other interval change. IMPRESSION: 1. Evidence of bilateral pneumonia, greater at the right lung base. Aeration at the right lung b ase and in the right mid lung field does appear improved suggesting improving pneumonia. 2. Right sided thoracostomy tube in place. A definitive pneumothorax is not delineated on this e xam. POS: YINA
[2020-01-18] MEDS: Lorazepam 2 MG/ML VIAL SLOW IVP PRN ×3 (17:00→23:20)
[2020-01-18] MEDS ORDERED: Ciprofloxacin 0.2% Otic (0.25ML CONTAINER) R EAR SCH (21:00)
[2020-01-19] MEDS: Metoclopramide HCl 10 MG/2 ML VIAL IVP SCH ×4 (02:57→20:20)
[2020-01-19] MEDS: Lorazepam 2 MG/ML VIAL SLOW IVP PRN ×7 (02:57→17:34)
[2020-01-19] MEDS: Propofol 1,000 MG/100 ML VIAL IV PRN ×8 (03:05→23:59)
[2020-01-19 03:34] LABS: #Lymphocytes 0.8 thou/uL (1.20-3.40); #Monocytes 0.6 thou/uL (0.11-0.59); #Neutrophils 16.9 thou/uL (1.40-6.50); %Eosinophils 0.1 % (0.0-10.0); %Lymphocytes 4.4 % (21.0-51.0); %Monocytes 3.1 % (0.0-10.0); %Neutrophils 92.2 % (42.0-75.0); Hemoglobin 12.4 g/dL (14.0-18.0); Mean Corpuscular HGB CONC 30.6 g/dL (32.0-36.0); Mean Corpuscular Hemoglobin 22.9 pg (27.0-31.0); Mean Corpuscular Volume 74.8 fL (78.0-98.0); Mean Platelet Volume 9.9 fL (7.4-10.4); Platelet Count 253 thou/uL (130-400); RBC Distribution Width 13.2 % (11.5-14.5); Red Blood Cell (RBC) Count 5.44 mill/uL (4.70-6.10); White Blood Cell (WBC) Count 18.3 thou/uL (4.8-10.8)
[2020-01-19 04:00] LABS: Anion Gap 18 mmol/L (10-20); BUN (Urea Nitrogen) 7 mg/dL (8.9-20.6); Calc. Creatinine Clearance 197 mL/min (70-130); Calcium 8.4 mg/dL (7.8-10.44); Carbon Dioxide 23 mmol/L (22-29); Chloride 108 mmol/L (98-107); Estimated GFR-MDRD Greater than 90; Glucose 125 mg/dL (70-105); Magnesium 2.2 mg/dL (1.6-2.6); Potassium 4.2 mmol/L (3.5-5.1); Sodium 145 mmol/L (136-145)
[2020-01-19 04:12] LABS: Phosphorus 3.6 mg/dL (2.3-4.7)
[2020-01-19] MEDS: fentaNYL Citrate/PF 2,000 MCG in Sodium Chloride 0.9% 60 ML IV SCH ×2 (05:03→16:53)
[2020-01-19] MEDS: Piperacillin/Tazobactam 3.375 GM in Sodium Chloride 0.9% 100 ML IVPB SCH ×4 (05:13→23:25)
[2020-01-19] MEDS: methylPREDNISolone Sod Succ 40 MG VIAL IVP SCH ×4 (05:14→23:25)
[2020-01-19 07:09] LABS: Actual Bicarbonate (HCO3a) 28.5 mEq/L (22-28); Base Excess (BEa) 1.8 mEq/L (-2.0 to +3.0); CO2 Tension 53.7 mmHg (35.0-45.0); Calcium, Ionized (arterial) 1.16 mmol/L (1.12-1.30); Carboxyhemoglobin (COHb) 0.2 gm% (0.0-3.0); Hemoglobin (Hb) 12.7 g/dL (14.0-18.0); O2 Tension (PaO2), arterial 91.3 mmHg (80.0-100.0); Potassium - ABG Lab 4.09 mmol/L (3.70-5.30); pH, Arterial 7.34 (7.35-7.45)
[2020-01-19 07:11] LABS: ALV-art Gradient 91.125 mmHg (0-20); Puncture Site RRA
[2020-01-19] MEDS: Enoxaparin Sodium 40 MG/0.4 ML SYRINGE SC SCH (09:18)
[2020-01-19] MEDS: Pantoprazole 40 MG VIAL IVP SCH (09:19)
--- NOTE | 2020-01-19 09:31 | RAD ---
EXAM: CHEST ONE VIEW HISTORY: Pneumonia. Follow-up evaluation COMPARISON: 01/18/2020 FINDINGS: Endotracheal tube, nasogastric tube, and right-sided thoracostomy tube remain in place and unchanged in position. Cardiac silhouette is magnified by projection and stable in size. Pulmonary vasculature is at the upper limits of normal. No obvious pneumothorax is visualized on this exam. The area of consolidation at the right lung base persists and is again worrisome for pneumonia. There is minimal patchy density again seen in the left hilar region and at the left lung base. No other int erval change. IMPRESSION: Evidence of bibasilar pneumonia. Follow-up to resolution is recommended. Right-sided thoracostomy tube unchanged in position, and no obvious pneumothorax is seen.
[2020-01-19] MEDS: Sodium Chloride 0.9% 1,000 ML IV SCH ×3 (11:04→23:59)
--- NOTE | 2020-01-19 12:32 | PRG ---
DATE OF SERVICE: 01/19/2020 SUBJECTIVE: Mr. Mendoza has been weaned to the point that he is on CPAP, but then becomes extremely agitated. There was some concern that he might self extubate. He has of his extremities and has a very irregular respiratory pattern where he will hyperventilate and then appeared to do a Valsalva. He does not have a typical Deonte-Morelos pattern. Neurologically, he does not show any improvement. PHYSICAL EXAMINATION: VITAL SIGNS: Blood pressure is 140/81, heart rate is 100, saturation 95% on ventilator, FiO2 of 35. GENERAL: He remains intubated, very restless and agitated. Moving all extremities spontaneously, but without apparent coordination. HEENT: He has dysconjugate gaze and does not focus or track and does not follow any verbal commands. He has no adenopathy. When he is having apparent Valsalva, he does have external venous dilation. LUNGS: Show coarse rhonchi, but no wheezing. HEART: Regular rate and rhythm. ABDOMEN: Soft, mildly obese. EXTREMITIES: He has trace to 1+ edema. LABORATORY DATA: White count 18,300, hemoglobin is 12.4, platelet count 253,000. Blood gas shows pH 7.34, CO2 of 54, PO2 of 95, bicarbonate 29. This was obtained when he was on a rate of 8, tidal volume 500 prior to CPAP therapy. Electrolytes include sodium 145, potassium 4.2, chloride 108, CO2 of 23, BUN 7, and creatinine 0.8. His chest x-ray this morning shows basilar consolidation especially focal area in the right base. The x-ray is rotated. Tube is certainly above the rebekah. His chest tube is into the right apex. IMPRESSION: 1. Overdose. 2. Probable aspiration pneumonitis. At presentation, the patient had opacified right hemithorax with associated volume loss. This was misinterpreted in the emergency room as consistent with effusion and a chest tube was placed. He has subsequently undergone bronchoscopy x2. There is no evidence he needs another bronchoscopy today. 3. Altered mental status, suggestive of anoxic injury. The patient is very restless and agitated. He is not following commands. I do not necessarily think we need to keep him intubated for that reason specifically and hopefully we can extubate him. PLAN: Hopefully we can extubate him today and manage to keep him off the ventilator. I do not think that his neurologic status is going to improve in the short term. I am concerned that he may self extubate if we are not ahead of the curve in a preventive fashion. There is no evidence he needs a repeat bronchoscopy today. I will try to talk to his family later, although they seem very understanding and realistic about his recovery since he has been headed down this path for many years. Critical care 30 minutes. Job ID: [id number]
--- NOTE | 2020-01-19 15:52 | PDOC.HOSPP ---
- Subjective Encounter Date: 01/19/20 Encounter Time: 08:45 Subjective: on vent, mild sedation, is trying to wake up but not oriented - Objective Vital Signs & Weight: Vital Signs (12 hours) Temp Pulse Resp BP Pulse Ox 01/19/20 14:15 104 H 155/96 H 01/19/20 14:00 16 01/19/20 12:00 14 01/19/20 11:02 100 182/99 H 01/19/20 10:00 98.5 F 19 01/19/20 08:00 18 01/19/20 07:41 16 96 01/19/20 07:32 96 141/85 H 01/19/20 06:00 16 01/19/20 04:00 99 F 19 Weight Admit Weight 227 lb 4.745 oz Weight 227 lb 4.745 oz Most Recent Monitor Data Heart Rate from ECG 94 NIBP 155/96 NIBP BP-Mean 115 Respiration from ECG 23 SpO2 96 I&O: 01/18/20 01/19/20 01/20/20 06:59 06:59 06:59 Intake Total 4272.9 4073 200 Output Total 4130 2060 410 Balance 142.9 2012 Result Diagrams: 01/19/20 03:07 01/19/20 03:07 Additional Labs: Accuchecks 01/19/20 12:07 POC Glucose 105 H Hospitalist ROS - Medication Medications: Active Medications Generic Name Dose Route Start Last Admin Trade Name Freq PRN Reason Stop Dose Admin Albuterol/Ipratropium 3 ml 01/17/20 02:30 01/19/20 14:15 Ipratropium/Albuterol Sulfate 3 Ml Neb NEB 3 ml [id number] GEORGI Administration Enoxaparin Sodium 40 mg 01/18/20 09:00 01/19/20 09:18 Enoxaparin Sodium 40 Mg/0.4 Ml Syringe SC 40 mg 0900 GEORGI Administration Sodium Chloride 1,000 mls @ 125 mls/hr 01/17/20 00:30 01/19/20 11:04 Normal Saline 0.9% IV 1,000 mls .Q8H GEORGI Administration Piperacillin Sod/Tazobactam 100 mls @ 200 mls/hr 01/17/20 06:00 01/19/20 12:14 Sod 3.375 gm/ Sodium Chloride IVPB 100 mls Q6HR GEORGI Administration Fentanyl Citrate 2,000 mcg/ 100 mls @ 0 mls/hr 01/17/20 00:45 01/19/20 05:03 Sodium Chloride IV 02/16/20 00:45 100 mls INF GEORGI Administration Protocol Per Protocol Thiamine HCl 100 mg/ Sodium 51 mls @ 100 mls/hr 01/17/20 09:00 01/19/20 09:41 Chloride IVPB 01/20/20 21:31 51 mls Q12HR GEORGI Administration Insulin Human Lispro 0 units 01/17/20 03:55 01/17/20 20:06 Humalog 300 Units/3 Ml Vial SC 2 unit .MILD SLIDING SCALE PRN Administration Mild Correctional Scale Lorazepam 2 mg 01/17/20 00:45 01/19/20 14:24 Lorazepam 2 Mg/Ml Vial SLOW IVP 02/16/20 00:45 2 mg Q1H PRN Administration Breakthrough agitation Methylprednisolone Sodium Succinate 20 mg 01/17/20 06:00 01/19/20 12:14 Methylprednisolone Sod Succ 40 Mg Vial IVP 20 mg Q6HR GEORGI Administration Metoclopramide HCl 10 mg 01/17/20 09:00 01/19/20 09:18 Metoclopramide Hcl 10 Mg/2 Ml Vial IVP 10 mg Q6H GEORGI Administration Pantoprazole Sodium 40 mg 01/17/20 09:00 01/19/20 09:19 Pantoprazole 40 Mg Vial IVP 40 mg DAILY GEORGI Administration Propofol 1,000 mg 01/17/20 00:45 01/19/20 15:11 Propofol 1,000 Mg/100 Ml Vial IV 02/16/20 00:45 1,000 mg INF PRN Administration TO ACHIEVE GOAL RASS Protocol Sterile Water 10 ml 01/17/20 00:41 01/18/20 03:27 Sterile Water 10 Ml Vial IVP 10 ml PRN PRN Administration NEEDED FOR RECONSTITUTION Vecuronium [place] 10 mg 01/17/20 00:31 01/18/20 03:27 Vecuronium 10 Mg Vial IVP 10 mg Q30MIN PRN Administration Agitation - Exam Eye: PERRL, anicteric sclera ENT: no oropharyngeal lesions, dry oral mucosa Neck: supple, no JVD Heart: RRR, no murmur Respiratory: no wheezes, no rales Gastrointestinal: soft, non-tender, non-distended, normal bowel sounds Extremities: no cyanosis, no edema Neurological: cranial nerve grossly intact, no focal deficits Hosp A/P (1) Acute respiratory failure with hypoxia Code(s): J96.01 - ACUTE RESPIRATORY FAILURE WITH HYPOXIA Status: Acute (2) Aspiration pneumonia Code(s): J69.0 - PNEUMONITIS DUE TO INHALATION OF FOOD AND VOMIT Status: Acute Qualifiers: Aspiration pneumonia type: due to regurgitated food Laterality: right (3) Substance abuse Code(s): F19.10 - OTHER PSYCHOACTIVE SUBSTANCE ABUSE, UNCOMPLICATED Status: Chronic (4) Bipolar disorder Code(s): F31.9 - BIPOLAR DISORDER, UNSPECIFIED Status: Chronic - Plan is on zosyn, steroids, nebs is s/p bronchoscopy with clearing of aspirated material from right lung cxr shows clearing weaning per pulm advice, was getting agitated this am upon weaning, was placed back on 4 point restraint. continue protonix, iv fluids hemostable has bloody ng suction, will see if this gets worse
[2020-01-19] MEDS ORDERED: Haloperidol Lactate 5 MG/ML VIAL IM SCH (17:15)
[2020-01-19] MEDS: Haloperidol Lactate 5 MG/ML VIAL IM SCH (20:19)
[2020-01-20] MEDS: Lorazepam 2 MG/ML VIAL SLOW IVP PRN ×3 (00:31→20:36)
[2020-01-20] MEDS: Haloperidol Lactate 5 MG/ML VIAL IM SCH ×3 (00:57→08:42)
[2020-01-20] MEDS: Metoclopramide HCl 10 MG/2 ML VIAL IVP SCH ×4 (02:56→20:36)
[2020-01-20] MEDS: Propofol 1,000 MG/100 ML VIAL IV PRN ×2 (02:56→06:34)
[2020-01-20 03:26] LABS: #Lymphocytes 1.1 thou/uL (1.20-3.40); #Monocytes 0.5 thou/uL (0.11-0.59); #Neutrophils 12.9 thou/uL (1.40-6.50); %Basophils 0.3 % (0.0-1.0); %Eosinophils 0.1 % (0.0-10.0); %Lymphocytes 7.4 % (21.0-51.0); %Monocytes 3.6 % (0.0-10.0); %Neutrophils 88.7 % (42.0-75.0); Hemoglobin 12.2 g/dL (14.0-18.0); Mean Corpuscular HGB CONC 32.1 g/dL (32.0-36.0); Mean Corpuscular Hemoglobin 23.4 pg (27.0-31.0); Mean Platelet Volume 9.4 fL (7.4-10.4); Platelet Count 261 thou/uL (130-400); RBC Distribution Width 12.9 % (11.5-14.5); Red Blood Cell (RBC) Count 5.22 mill/uL (4.70-6.10); White Blood Cell (WBC) Count 14.6 thou/uL (4.8-10.8)
[2020-01-20 03:45] LABS: Anion Gap 14 mmol/L (10-20); BUN (Urea Nitrogen) 11 mg/dL (8.9-20.6); Calc. Creatinine Clearance 197 mL/min (70-130); Calcium 8.5 mg/dL (7.8-10.44); Carbon Dioxide 27 mmol/L (22-29); Chloride 107 mmol/L (98-107); Estimated GFR-MDRD Greater than 90; Glucose 117 mg/dL (70-105); Magnesium 2.3 mg/dL (1.6-2.6); Phosphorus 3.7 mg/dL (2.3-4.7); Potassium 3.9 mmol/L (3.5-5.1); Sodium 144 mmol/L (136-145)
[2020-01-20] MEDS: fentaNYL Citrate/PF 2,000 MCG in Sodium Chloride 0.9% 60 ML IV SCH (03:48)
[2020-01-20] MEDS: Piperacillin/Tazobactam 3.375 GM in Sodium Chloride 0.9% 100 ML IVPB SCH ×4 (04:48→23:25)
[2020-01-20] MEDS: methylPREDNISolone Sod Succ 40 MG VIAL IVP SCH ×4 (04:49→23:26)
[2020-01-20 07:02] LABS: Actual Bicarbonate (HCO3a) 29.6 mEq/L (22-28); Base Excess (BEa) 3.9 mEq/L (-2.0 to +3.0); CO2 Tension 48.8 mmHg (35.0-45.0); Calcium, Ionized (arterial) 1.18 mmol/L (1.12-1.30); Carboxyhemoglobin (COHb) 0.1 gm% (0.0-3.0); Hemoglobin (Hb) 12.3 g/dL (14.0-18.0); O2 Tension (PaO2), arterial 103.4 mmHg (80.0-100.0); Potassium - ABG Lab 3.79 mmol/L (3.70-5.30)
[2020-01-20 07:05] LABS: Puncture Site RRA
[2020-01-20] MEDS: Sodium Chloride 0.9% 1,000 ML IV SCH ×2 (07:51→17:51)
--- NOTE | 2020-01-20 08:10 | RAD ---
EXAM: CHEST ONE VIEW HISTORY: Pneumonia. Follow-up evaluation. COMPARISON: 01/19/2020 FINDINGS: Endotracheal tube, nasogastric tube, and right-sided thoracostomy tube remain stable in position. Car diac silhouette stable in size. Dense opacity at the right lung base is again seen with suggestion of slight improvement in aeration at the right lung base as well as improvement in aeration at the le ft lung base compared to prior exam. No other interval change. IMPRESSION: 1. Mild improvement in bilateral pneumonia. 2. Right-sided thoracostomy tube remaining in place. No pneumothorax is appreciated.
[2020-01-20] MEDS: Pantoprazole 40 MG VIAL IVP SCH (08:42)
[2020-01-20] MEDS: Enoxaparin Sodium 40 MG/0.4 ML SYRINGE SC SCH (08:43)
[2020-01-20] MEDS ORDERED: DC Sedation Protocol FS ONE (09:27)
--- NOTE | 2020-01-20 09:52 | PRG ---
DATE OF SERVICE: 01/20/2020 SUBJECTIVE: Magdy Mendoza is a 34-year-old gentleman who remains intubated. Respiratory failure. He had substance abuse, bipolar, seizure disorders, meth and K2 abuse. His entire right lung is opacified. He is here to be bronchoscoped, large amount of food particles were seen. Overdose. This morning, he is slightly more responsive. OBJECTIVE: VITAL SIGNS: His saturations are 100%, pulse 56, blood pressure 120/80, respiratory rate 18. GENERAL: He is more responsive. Still encephalopathic. CHEST: Reveals rhonchi. CARDIAC: Normal S1 and S2. No gallops. ABDOMEN: No masses. LABORATORY DATA: White count 14,000. PO2 is 103, pCO2 of 40%, rate of 8, 500 tidal volume. Lytes are normal. X-ray shows improvement in the right lower lung atelectatic changes. ASSESSMENT: Aspiration pneumonia, respiratory failure, bipolar, seizure disorders, substance abuse. PLAN: Try and hold sedation. We may consider weaning and extubation. Otherwise, continue antibiotics, steroids, neb treatments, supportive care. We will follow. One-half hour of critical care time. Job ID: [id number]
--- NOTE | 2020-01-20 11:50 | PDOC.HOSPP ---
- Subjective Encounter Date: 01/20/20 Encounter Time: 11:15 Subjective: got extubated this am follows verbal stimuli, is not fully oriented agitated at times - Objective Vital Signs & Weight: Vital Signs (12 hours) Temp Pulse Resp BP Pulse Ox 01/20/20 11:33 96 01/20/20 10:15 85 14 96 01/20/20 09:30 81 15 94 L 01/20/20 08:00 18 01/20/20 07:14 100 01/20/20 07:00 97.7 F 01/20/20 06:59 60 01/20/20 06:00 19 01/20/20 04:00 98.7 F 01/20/20 02:37 50 L 144/97 H 01/20/20 02:35 59 L 12 99 01/20/20 02:00 14 01/20/20 00:00 99 F 17 Weight Admit Weight 227 lb 4.745 oz Weight 227 lb 4.745 oz Most Recent Monitor Data Heart Rate from ECG 80 NIBP 159/96 NIBP BP-Mean 117 Respiration from ECG 15 SpO2 100 I&O: 01/19/20 01/20/20 01/21/20 06:59 06:59 06:59 Intake Total 6602 0677 268 Output Total 1580 2516 969 Balance 0583 -739 -854 Result Diagrams: 01/20/20 03:15 01/20/20 03:15 Additional Labs: Accuchecks 01/19/20 01/19/20 18:30 12:07 POC Glucose 109 H 105 H Hospitalist ROS - Medication Medications: Active Medications Generic Name Dose Route Start Last Admin Trade Name Freq PRN Reason Stop Dose Admin Albuterol/Ipratropium 3 ml 01/17/20 02:30 01/20/20 10:15 Ipratropium/Albuterol Sulfate 3 Ml Neb NEB 3 ml [id number] GEORGI Administration Enoxaparin Sodium 40 mg 01/18/20 09:00 01/20/20 08:43 Enoxaparin Sodium 40 Mg/0.4 Ml Syringe SC 40 mg 0900 GEORGI Administration Sodium Chloride 1,000 mls @ 125 mls/hr 01/17/20 00:30 01/20/20 07:51 Normal Saline 0.9% IV 1,000 mls .Q8H GEORGI Administration Piperacillin Sod/Tazobactam 100 mls @ 200 mls/hr 01/17/20 06:00 01/20/20 11:25 Sod 3.375 gm/ Sodium Chloride IVPB 100 mls Q6HR GEORGI Administration Fentanyl Citrate 2,000 mcg/ 100 mls @ 0 mls/hr 01/17/20 00:45 01/20/20 03:48 Sodium Chloride IV 02/16/20 00:45 100 mls INF GEORGI Administration Protocol Per Protocol Thiamine HCl 100 mg/ Sodium 51 mls @ 100 mls/hr 01/17/20 09:00 01/20/20 08:54 Chloride IVPB 01/20/20 21:31 51 mls Q12HR GEORGI Administration Insulin Human Lispro 0 units 01/17/20 03:55 01/17/20 20:06 Humalog 300 Units/3 Ml Vial SC 2 unit .MILD SLIDING SCALE PRN Administration Mild Correctional Scale Lorazepam 2 mg 01/17/20 00:45 01/20/20 07:48 Lorazepam 2 Mg/Ml Vial SLOW IVP 02/16/20 00:45 2 mg Q1H PRN Administration Breakthrough agitation Methylprednisolone Sodium Succinate 20 mg 01/17/20 06:00 01/20/20 11:24 Methylprednisolone Sod Succ 40 Mg Vial IVP 20 mg Q6HR GEORGI Administration Metoclopramide HCl 10 mg 01/17/20 09:00 01/20/20 08:54 Metoclopramide Hcl 10 Mg/2 Ml Vial IVP 10 mg Q6H GEORGI Administration Pantoprazole Sodium 40 mg 01/17/20 09:00 01/20/20 08:42 Pantoprazole 40 Mg Vial IVP 40 mg DAILY GEORGI Administration Propofol 1,000 mg 01/17/20 00:45 01/20/20 06:34 Propofol 1,000 Mg/100 Ml Vial IV 02/16/20 00:45 1,000 mg INF PRN Administration TO ACHIEVE GOAL RASS Protocol - Exam Eye: anicteric sclera ENT: no oropharyngeal lesions, dry oral mucosa Neck: supple, no JVD Heart: RRR, no murmur Respiratory: no wheezes, no rales Gastrointestinal: soft, non-tender, non-distended, normal bowel sounds Extremities: no cyanosis, no edema Neurological: cranial nerve grossly intact Hosp A/P (1) Acute respiratory failure with hypoxia Code(s): J96.01 - ACUTE RESPIRATORY FAILURE WITH HYPOXIA Status: Acute (2) Aspiration pneumonia Code(s): J69.0 - PNEUMONITIS DUE TO INHALATION OF FOOD AND VOMIT Status: Acute Qualifiers: Aspiration pneumonia type: due to regurgitated food Laterality: right (3) Substance abuse Code(s): F19.10 - OTHER PSYCHOACTIVE SUBSTANCE ABUSE, UNCOMPLICATED Status: Chronic (4) Bipolar disorder Code(s): F31.9 - BIPOLAR DISORDER, UNSPECIFIED Status: Chronic - Plan is on zosyn, steroids, nebs is s/p bronchoscopy with clearing of aspirated material from right lung cxr shows clearing got extubated 01/20/2020, is agitated and in 4 point restraint. continue protonix, iv fluids hemostable has restricted left gaze, is moving all extremities, will get neurology consultation per family he gets these when he does drugs??
--- NOTE | 2020-01-20 15:15 | CON ---
NEUROLOGY CONSULTATION DATE OF CONSULTATION: 01/20/2020 REASON FOR CONSULTATION: Left gaze preference. HISTORY OF PRESENT ILLNESS: Mr. Mendoza is a 34-year-old male with history significant for anxiety, bipolar depression, substance abuse, admitted to [facility] with aspiration pneumonia followed by an episode of loss of consciousness in the backyard and was found by the mother. In the emergency room, chest x-ray showed opacified right hemithorax with no significant breath sounds on that side. Emergent bronchoscopy was performed by Dr. South and he was intubated and sedated and admitted to CCU. He does have history of alcohol abuse and known abuse of benzodiazepine, K2 and urine drug screen was for positive for methamphetamine in the emergency room. Neurology was consulted because he has been successfully extubated and extremely agitated at this point and has left gaze preference. Per family, he has left gaze preference whenever he uses drugs. REVIEW OF SYSTEMS: Unobtainable due to patient's mental status. PAST MEDICAL HISTORY: Anxiety, polysubstance abuse, depression, bipolar disorder. PAST SURGICAL HISTORY: None. FAMILY HISTORY: No family history of strokes. SOCIAL HISTORY: The patient drinks socially. History of benzodiazepine, K2 abuse and methamphetamine abuse. ALLERGIES: NKDA Objective Vital Signs & Weight: Vital Signs (12 hours) Temp Pulse Resp BP Pulse Ox 01/20/20 11:33 96 01/20/20 10:15 85 14 96 01/20/20 09:30 81 15 94 L 01/20/20 08:00 18 01/20/20 07:14 100 01/20/20 07:00 97.7 F 01/20/20 06:59 60 01/20/20 06:00 19 01/20/20 04:00 98.7 F 01/20/20 02:37 50 L 144/97 H 01/20/20 02:35 59 L 12 99 01/20/20 02:00 14 01/20/20 00:00 99 F 17 Weight Admit Weight 227 lb 4.745 oz Weight 227 lb 4.745 oz Most Recent Monitor Data Heart Rate from ECG 80 NIBP 159/96 NIBP BP-Mean 117 Respiration from ECG 15 SpO2 100 I&O: 01/19/20 01/20/20 01/21/20 06:59 06:59 06:59 Intake Total 2005 6795 936 Output Total 0340 7497 311 Balance 20129 -588 Additional Labs: Accuchecks 01/19/20 01/19/20 18:30 12:07 POC Glucose 109 H 105 H Active Medications Generic Name Dose Route Start Last Admin Trade Name Freq PRN Reason Stop Dose Admin Albuterol/Ipratropium 3 ml 01/17/20 02:30 01/20/20 10:15 Ipratropium/Albuterol Sulfate 3 Ml Neb NEB 3 ml [id number] GEORGI Administration Enoxaparin Sodium 40 mg 01/18/20 09:00 01/20/20 08:43 Enoxaparin Sodium 40 Mg/0.4 Ml Syringe SC 40 mg 0900 GEORGI Administration Sodium Chloride 1,000 mls @ 125 mls/hr 01/17/20 00:30 01/20/20 07:51 Normal Saline 0.9% IV 1,000 mls .Q8H GEORGI Administration Piperacillin Sod/Tazobactam 100 mls @ 200 mls/hr 01/17/20 06:00 01/20/20 11:25 Sod 3.375 gm/ Sodium Chloride IVPB 100 mls Q6HR GEORGI Administration Fentanyl Citrate 2,000 mcg/ 100 mls @ 0 mls/hr 01/17/20 00:45 01/20/20 03:48 Sodium Chloride IV 02/16/20 00:45 100 mls INF GEORGI Administration Protocol Per Protocol Thiamine HCl 100 mg/ Sodium 51 mls @ 100 mls/hr 01/17/20 09:00 01/20/20 08:54 Chloride IVPB 01/20/20 21:31 51 mls Q12HR GEORGI Administration Insulin Human Lispro 0 units 01/17/20 03:55 01/17/20 20:06 Humalog 300 Units/3 Ml Vial SC 2 unit .MILD SLIDING SCALE PRN Administration Mild Correctional Scale Lorazepam 2 mg 01/17/20 00:45 01/20/20 07:48 Lorazepam 2 Mg/Ml Vial SLOW IVP 02/16/20 00:45 2 mg Q1H PRN Administration Breakthrough agitation Methylprednisolone Sodium Succinate 20 mg 01/17/20 06:00 01/20/20 11:24 Methylprednisolone Sod Succ 40 Mg Vial IVP 20 mg Q6HR GEORGI Administration Metoclopramide HCl 10 mg 01/17/20 09:00 01/20/20 08:54 Metoclopramide Hcl 10 Mg/2 Ml Vial IVP 10 mg Q6H GEORGI Administration Pantoprazole Sodium 40 mg 01/17/20 09:00 01/20/20 08:42 Pantoprazole 40 Mg Vial IVP 40 mg DAILY GEORGI Administration Propofol 1,000 mg 01/17/20 00:45 01/20/20 06:34 Propofol 1,000 Mg/100 Ml Vial IV 02/16/20 00:45 1,000 mg INF PRN Administration TO ACHIEVE GOAL RASS Protocol - Exam Eye: anicteric sclera ENT: no oropharyngeal lesions, dry oral mucosa Neck: supple, no JVD Heart: RRR, no murmur Respiratory: no wheezes, no rales Gastrointestinal: soft, non-tender, non-distended, normal bowel sounds Extremities: no cyanosis, no edema Neurological: Mental status: The patient has been extubated, but he is extremely agitated. Does not follow commands. Does not maintain eye contact. Cranial nerves: Pupils 4 mm, round and reactive to light. Face symmetric. Tongue midline. Moves neck in both direction. Hearing seems to be intact. Intermittent left gaze preference is seen. Motor: Muscle tone and bulk are normal. Moving all 4 extremities equally and symmetrically. Sensory: Withdraws to nailbed pressure bilaterally. Cerebellar: Could not be performed because of patient restrained and agitation. Gait deferred due to patient's safety reasons. DATA REVIEWED: I reviewed the labs. Urine drug screen was positive for polysubstance abuse. ASSESSMENT AND PLAN: (1) Acute respiratory failure with hypoxia Code(s): J96.01 - ACUTE RESPIRATORY FAILURE WITH HYPOXIA Status: Acute (2) Aspiration pneumonia Code(s): J69.0 - PNEUMONITIS DUE TO INHALATION OF FOOD AND VOMIT Status: Acute Qualifiers: Aspiration pneumonia type: due to regurgitated food Laterality: right (3) Substance abuse Code(s): F19.10 - OTHER PSYCHOACTIVE SUBSTANCE ABUSE, UNCOMPLICATED Status: Chronic (4) Bipolar disorder Code(s): F31.9 - BIPOLAR DISORDER, UNSPECIFIED Status: Chronic Mr. Magdy Mendoza is a 34-year-old male with polysubstance abuse, consulted by Neurology for intermittent gaze preference. Intracranial process could not be completely ruled out. Consider MRI of the brain when stable. Neuro checks every 4 hours. Continue home medications. Continue medical management per primary team. Further recommendation depends on the results of the testing. We will continue to follow. Thank you for the consult. Job ID: [id number] [facility]
[2020-01-20] MEDS: Haloperidol Lactate 5 MG/ML VIAL IM PRN (19:31)
[2020-01-21] MEDS: Sodium Chloride 0.9% 1,000 ML IV SCH ×2 (00:18→09:22)
[2020-01-21] MEDS: Metoclopramide HCl 10 MG/2 ML VIAL IVP SCH ×2 (02:57→08:33)
[2020-01-21 03:23] LABS: #Basophils 0.1 thou/uL (0.0-0.2); #Eosinphils 0.1 thou/uL (0.0-0.7); #Lymphocytes 1.6 thou/uL (1.20-3.40); #Monocytes 0.7 thou/uL (0.11-0.59); #Neutrophils 10.9 thou/uL (1.40-6.50); %Basophils 0.6 % (0.0-1.0); %Eosinophils 0.5 % (0.0-10.0); %Lymphocytes 11.7 % (21.0-51.0); %Monocytes 5.5 % (0.0-10.0); %Neutrophils 81.8 % (42.0-75.0); Hemoglobin 12.3 g/dL (14.0-18.0); Mean Corpuscular HGB CONC 33.1 g/dL (32.0-36.0); Mean Corpuscular Hemoglobin 23.9 pg (27.0-31.0); Mean Corpuscular Volume 72.1 fL (78.0-98.0); Mean Platelet Volume 9.2 fL (7.4-10.4); Platelet Count 262 thou/uL (130-400); RBC Distribution Width 12.7 % (11.5-14.5); Red Blood Cell (RBC) Count 5.15 mill/uL (4.70-6.10); White Blood Cell (WBC) Count 13.3 thou/uL (4.8-10.8)
[2020-01-21 03:42] LABS: Phosphorus 3.3 mg/dL (2.3-4.7)
[2020-01-21 03:45] LABS: Anion Gap 14 mmol/L (10-20); BUN (Urea Nitrogen) 16 mg/dL (8.9-20.6); Calc. Creatinine Clearance 205 mL/min (70-130); Calcium 8.2 mg/dL (7.8-10.44); Carbon Dioxide 26 mmol/L (22-29); Chloride 105 mmol/L (98-107); Estimated GFR-MDRD Greater than 90; Glucose 97 mg/dL (70-105); Magnesium 2.2 mg/dL (1.6-2.6); Potassium 3.5 mmol/L (3.5-5.1); Sodium 141 mmol/L (136-145)
[2020-01-21] MEDS: Piperacillin/Tazobactam 3.375 GM in Sodium Chloride 0.9% 100 ML IVPB SCH (05:33)
[2020-01-21] MEDS: methylPREDNISolone Sod Succ 40 MG VIAL IVP SCH (05:33)
--- NOTE | 2020-01-21 07:48 | RAD ---
Chest one view HISTORY: Pneumonia. Follow-up. COMPARISON: 01/20/2020. FINDINGS: Cardiac silhouette is magnified by projection. Pulmonary vasculature upper limits of normal . Parenchymal opacity at each lung base is less dense than on the prior exam. Mediastinum is midline. Endotracheal catheter and nasogastric tube no longer visible. Right thoracostomy tube remains in place. No evidence of pneumothorax. bus driver/monitor leads overlie the chest. IMPRESSION : Continued improvement in radiographic appearance of bibasilar infiltrates. Removal of the endotracheal catheter and nasogastric tube.
[2020-01-21] MEDS ORDERED: Potassium Chloride 20 MEQ in Premix Bag 1 BAG IVPB SCH (08:00)
[2020-01-21] MEDS: Enoxaparin Sodium 40 MG/0.4 ML SYRINGE SC SCH (08:31)
[2020-01-21] MEDS: Haloperidol Lactate 5 MG/ML VIAL IM PRN ×2 (08:31→15:30)
[2020-01-21] MEDS: Pantoprazole 40 MG VIAL IVP SCH (08:34)
[2020-01-21] MEDS ORDERED: Potassium Chloride 20 MEQ TAB PO SCH (08:45)
[2020-01-21] MEDS ORDERED: Amoxicillin/Potassium Clav 500 MG TAB PO SCH (09:45)
--- NOTE | 2020-01-21 13:10 | PRG ---
DATE OF SERVICE: 01/21/2020 SUBJECTIVE: Magdy Mendoza is a 34-year-old gentleman. He is bipolar and who was extubated yesterday. He is doing better. He is less short of breath, more appropriate, less agitated. OBJECTIVE: VITAL SIGNS: Pulse 80, sats 100% on room air, blood pressure 140/84, and respiratory rate 18. CHEST: No wheezing, no crackles. CARDIAC: Normal S1 and S2. ABDOMEN: No masses. ASSESSMENT: 1. Spontaneous pneumothorax with right lung atelectasis. 2. Respiratory failure. 3. Bipolar. 4. Aspiration pneumonia. PLAN: The patient can be transferred to the MICU. . I will call Cardiovascular Surgery to assess his chest tube status. This more than likely can be removed. Pulmonary/Critical Care will follow. Job ID: [id number]
[2020-01-21 13:27] VITALS: BP 167/82
--- NOTE | 2020-01-21 13:51 | PDOC.HOSPP ---
- Subjective Encounter Date: 01/21/20 Encounter Time: 08:45 Subjective: is calm on bed his girlfriend is visiting him gets emotional/crying spells at times - Objective Vital Signs & Weight: Vital Signs (12 hours) Temp Pulse Pulse Pulse Resp BP BP 01/21/20 11:00 98.4 F 01/21/20 09:58 60 64 167/82 H 163/87 H 01/21/20 07:45 01/21/20 07:17 80 20 01/21/20 07:00 98.6 F 01/21/20 04:00 98.4 F 01/21/20 02:40 52 L 16 Pulse Ox Pulse Ox Pulse Ox 01/21/20 11:00 01/21/20 09:58 100 98 01/21/20 07:45 100 01/21/20 07:17 100 01/21/20 07:00 01/21/20 04:00 01/21/20 02:40 97 Weight Admit Weight 227 lb 4.745 oz Weight 227 lb 4.745 oz Most Recent Monitor Data Heart Rate from ECG 75 NIBP 158/92 NIBP BP-Mean 114 Respiration from ECG 18 SpO2 92 I&O: 01/20/20 01/21/20 01/22/20 06:59 06:59 06:59 Intake Total 2631 3027 510 Output Total 0966 3555 1249 [facility] -[phone] Result Diagrams: 01/21/20 03:07 01/21/20 03:07 Additional Labs: Accuchecks 01/20/20 00:19 POC Glucose 112 H Hospitalist ROS - Medication Medications: Active Medications Generic Name Dose Route Start Last Admin Trade Name Freq PRN Reason Stop Dose Admin Enoxaparin Sodium 40 mg 01/18/20 09:00 01/21/20 08:31 Enoxaparin Sodium 40 Mg/0.4 Ml Syringe SC 40 mg 0900 GEORGI Administration Haloperidol Lactate 5 mg 01/20/20 09:27 01/21/20 08:31 Haloperidol Lactate 5 Mg/Ml Vial IM 5 mg Q4H PRN Administration Agitation Insulin Human Lispro 0 units 01/17/20 03:55 01/17/20 20:06 Humalog 300 Units/3 Ml Vial SC 2 unit .MILD SLIDING SCALE PRN Administration Mild Correctional Scale Pantoprazole Sodium 40 mg 01/17/20 09:00 01/21/20 08:34 Pantoprazole 40 Mg Vial IVP 40 mg DAILY GEORGI Administration Sodium Chloride 10 ml 01/21/20 09:00 01/21/20 08:35 Flush - Normal Saline 10 Ml Syringe IVF 10 ml Q12HR GEORGI Administration - Exam General Appearance: awake alert Eye: PERRL, anicteric sclera ENT: no oropharyngeal lesions, moist mucosa Neck: supple, no JVD Heart: RRR, no murmur Respiratory: no wheezes, no rales Gastrointestinal: soft, non-tender, non-distended, normal bowel sounds Extremities: no cyanosis, no edema Neurological: cranial nerve grossly intact, no focal deficits Psychiatric: normal affect, A&O x 3 Hosp A/P (1) Acute respiratory failure with hypoxia Code(s): J96.01 - ACUTE RESPIRATORY FAILURE WITH HYPOXIA Status: Resolved (2) Aspiration pneumonia Code(s): J69.0 - PNEUMONITIS DUE TO INHALATION OF FOOD AND VOMIT Status: Acute Qualifiers: Aspiration pneumonia type: due to regurgitated food Laterality: right (3) Substance abuse Code(s): F19.10 - OTHER PSYCHOACTIVE SUBSTANCE ABUSE, UNCOMPLICATED Status: Chronic (4) Bipolar disorder Code(s): F31.9 - BIPOLAR DISORDER, UNSPECIFIED Status: Chronic - Plan is on zosyn, steroids, nebs is s/p bronchoscopy with clearing of aspirated material from right lung cxr shows clearing got extubated 01/20/2020 continue protonix, iv fluids hemostable has restricted left gaze yesterday, resolved today with normal eom encourage po intake once chest tube is removed he may be transfered to [facility] floor with 1:1 sitter if family cant be around him.
--- NOTE | 2020-01-21 16:39 | CON ---
DATE OF CONSULTATION: HISTORY OF PRESENT ILLNESS: Mr. Mendoza is a 34-year-old gentleman, who was admitted to the hospital from an ambulance. The ambulance was called due to loss of consciousness. He was intubated in the field, brought in and found to have complete opacification of the right chest. The emergency department physician placed a right-sided chest tube. This was manipulated and eventually placed to the apex with re-expansion of his right lung. Dr. Lopez asked me to come to see him to evaluate whether we could take his chest tube out. He has no air leak. He is completely uncooperative with any sort of history at this point. He is lying on his side, asking his mommy to rub his back while try to talk to him and she was willing to do this. Asked what kind of drugs he used, he stated he uses all of them. Does not have a job and seems to enjoy his role as "a drag on society." Does not respond when he is asked about how he pays for his drugs or tattoos. Cursing at his nurse and me the whole time I was in the room PAST MEDICAL HISTORY: Unknown. PAST SURGICAL HISTORY: Unknown. CURRENT MEDICATIONS: In the hospital are reviewed. ALLERGIES: UNKNOWN. SOCIAL HISTORY: He is a multisubstance abuser, who is very dependent on his mommy for any help. PHYSICAL EXAMINATION: GENERAL: He is a multiply tattooed young man. VITAL SIGNS: His height is 6 feet, weight is 227 pounds. Temperature is 98.6, pulse is 70 and regular, blood pressure 158/92. LUNGS: Clear bilaterally. IMAGING STUDIES: I have reviewed his chest x-ray series, which shows re- expansion of his right lung. Chest tube shows no air leak. ASSESSMENT AND PLAN: End of usefulness of right chest tube. I have tried to talk him about removal and he started crying when we started talking, so we are just going to remove it. Job ID: [id number] [facility]
[2020-01-21] MEDS: Amoxicillin/Potassium Clav 500 MG TAB PO SCH (20:47)
[2020-01-22 03:11] LABS: #Eosinphils 0.2 thou/uL (0.0-0.7); #Lymphocytes 2.6 thou/uL (1.20-3.40); #Monocytes 0.9 thou/uL (0.11-0.59); #Neutrophils 7.1 thou/uL (1.40-6.50); %Basophils 0.3 % (0.0-1.0); %Lymphocytes 23.9 % (21.0-51.0); %Monocytes 7.9 % (0.0-10.0); %Neutrophils 65.9 % (42.0-75.0); Hemoglobin 13.2 g/dL (14.0-18.0); Mean Corpuscular HGB CONC 33.5 g/dL (32.0-36.0); Mean Corpuscular Hemoglobin 23.6 pg (27.0-31.0); Mean Corpuscular Volume 70.6 fL (78.0-98.0); Mean Platelet Volume 8.9 fL (7.4-10.4); Platelet Count 251 thou/uL (130-400); RBC Distribution Width 12.6 % (11.5-14.5); Red Blood Cell (RBC) Count 5.59 mill/uL (4.70-6.10); White Blood Cell (WBC) Count 10.8 thou/uL (4.8-10.8)
[2020-01-22 03:34] LABS: Anion Gap 13 mmol/L (10-20); BUN (Urea Nitrogen) 13 mg/dL (8.9-20.6); Calc. Creatinine Clearance 202 mL/min (70-130); Calcium 8.5 mg/dL (7.8-10.44); Carbon Dioxide 26 mmol/L (22-29); Chloride 101 mmol/L (98-107); Estimated GFR-MDRD Greater than 90; Glucose 104 mg/dL (70-105); Potassium 3.2 mmol/L (3.5-5.1); Sodium 137 mmol/L (136-145)
[2020-01-22 03:35] LABS: Phosphorus 3.3 mg/dL (2.3-4.7)
[2020-01-22] MEDS ORDERED: Potassium Chloride 20 MEQ TAB PO SCH (04:00)
[2020-01-22] MEDS ORDERED: Magnesium 2 GM/50 ML 2 GM in Premix Bag 1 BAG IVPB SCH (04:30)
[2020-01-22] MEDS ORDERED: Magnesium Oxide 400 MG TAB PO SCH (05:00)
--- NOTE | 2020-01-22 06:25 | OP ---
DATE OF PROCEDURE: 01/21/2020 PREOPERATIVE DIAGNOSIS: End of usefulness of a right-sided chest tube. POSTOPERATIVE DIAGNOSIS: End of usefulness of a right-sided chest tube. PROCEDURE PERFORMED: Removal of chest tube. DESCRIPTION OF PROCEDURE: Dressings were removed. Suture was cut. Chest tube was removed. Sterile dressing was applied. The patient was very tearful during removing it and started cursing at everyone in the room. His mother was present to hold his hand during removal. Job ID: [id number]
[2020-01-22 07:37] VITALS: TEMP 98.6
[2020-01-22] MEDS ORDERED: predniSONE 20 MG TAB PO SCH (08:00)
[2020-01-22] MEDS: Enoxaparin Sodium 40 MG/0.4 ML SYRINGE SC SCH (08:34)
[2020-01-22] MEDS: Amoxicillin/Potassium Clav 500 MG TAB PO SCH (08:35)
--- NOTE | 2020-01-22 08:50 | RAD ---
EXAM: CHEST ONE VIEW HISTORY: Pneumonia. COMPARISON: 01/21/2020 FINDINGS: Cardiac silhouette is stable in size. Pulmonary vasculature is within normal limits. Previously seen parenchymal opacities at each lung base have resolved with only minimal linear densities present at the right lung base. The lungs appear clear on today's exam. Right-sided thoracostomy tube has been r emoved. No pneumothorax or pleural effusion is seen. No other interval change. IMPRESSION: 1. Interval removal right-sided thoracostomy tube without evidence of a pneumothorax. 2. Resolution of bibasilar parenchymal opacities likely related to resolution of bilateral pneumonia. Only minimal residual linear densities are present at the right lung base.
--- NOTE | 2020-01-22 09:16 | PRG ---
DATE OF SERVICE: 01/22/2020 SUBJECTIVE: Magdy Mendoza this morning is much more awake, alert, responsive. He is in no distress. OBJECTIVE: VITAL SIGNS: Temperature 98, on room air, blood pressure 156/81, respiratory rate 18. CHEST: No wheezing. No crackles. CARDIAC: Normal S1 and S2. No gallops. ABDOMEN: No masses. Chest tube was discontinued yesterday as per Cardiovascular Surgery. PLAN: Pulmonary lobato, we are going to restart his home medication. We are going to get [facility] to see the patient. See whether he requires inpatient treatment and care. We will follow. Job ID: [id number]
[2020-01-22] MEDS ORDERED: Gabapentin 300 MG CAP PO SCH ×2 (09:30→15:00)
[2020-01-22] MEDS ORDERED: Divalproex Sodium 250 MG (DR) TAB PO SCH ×2 (09:30→21:00)
[2020-01-22] MEDS: Pantoprazole 40 MG VIAL IVP SCH (09:56)
[2020-01-22 11:13] LABS: Potassium 3.3 mmol/L (3.5-5.1)
[2020-01-22] MEDS ORDERED: hydrOXYzine Pamoate 25 mg Capsule PO SCH (12:00)
[2020-01-22] MEDS ORDERED: QUEtiapine Fumarate ER 50 MG TAB PO SCH (14:00)
[2020-01-22] MEDS ORDERED: traZODone HCl 50 MG TAB PO SCH (21:00)
--- NOTE | 2020-01-23 14:08 | DIS ---
DATE OF ADMISSION: 01/16/2020 DATE OF DISCHARGE: 01/22/2020 DISCHARGE DISPOSITION: Home. PRIMARY DISCHARGE DIAGNOSES: Aspiration pneumonia with complete opacification of right lung, status post bronchoscopy x2, acute respiratory failure with hypoxia secondary to above, resolved, polysubstance abuse, bipolar disorder. PROCEDURES DONE DURING HOSPITALIZATION: Chest x-ray done showed opacification of right lung. He has had bronchoscopy done x2 by Dr. South on 01/17/2020 with clearing of food and debris from the right lung. He had initial chest tube placed for suspicion of possible effusion in the ER, which was removed on the day of discharge. H and H 13 and 39, platelet count 251, white count of 10, MCV is 70. Initial blood gas done showed a pH of 7.13, pCO2 of 80, PO2 of 44. Discharge BUN and creatinine are 13 and 0.7. Urine drug screen was positive for amphetamines and benzodiazepines. Plasma alcohol less than 10. COVID-19 PCR was not detected on 01/17/2020. DISCHARGE MEDICATIONS: 1. Depakote 250 mg twice daily. 2. Gabapentin 300 mg p.o. three times daily. 3. Seroquel extended release 50 mg at 8:00 a.m. and 2 p.m. and 200 mg at bedtime. 4. Trazodone 50 mg at bedtime. 5. Augmentin 500 mg p.o. twice daily for another 8 days. 6. Albuterol inhaler q.6 hourly p.r.n. ALLERGIES: NO KNOWN DRUG ALLERGIES. INPATIENT CONSULT: Dr. South for Pulmonology, Dr. Garg for Neurology. DISCHARGE PLAN: The patient to follow up with his primary care physician in 1 week. BRIEF COURSE DURING HOSPITALIZATION: The patient initially was found down in the house on 01/17/2020 by his mom and EMS was summoned. He was intubated by EMS as he was apneic. On arrival in ER, the patient had an initial chest x-ray done which showed complete opacification of right hemithorax. Dr. South was called to ER and performed emergent bronchoscopy with aspiration of food and other debris from his right lung. The patient has had a repeat bronchoscopy done next day. His right lung is almost clearing up at the time of discharge. He was extubated on 01/20/2020. Post extubation, the patient was agitated for nearly 24 to 36 hours and is coming around. He has known history of substance abuse from the age of 16 years. I have had complete discussion with his mom during his stay here. He has been to rehab previously and has relapsed. He needs to continue Augmentin for another eight days as prescribed. The patient also needs to follow up with [facility]. He was cleared by [facility] for discharge. He lives with his girlfriend and his mother. He is hemodynamically stable and has been cleared for discharge by Pulmonology. Please note, I have seen and examined the patient on the day of discharge. Job ID: [id number]
== END 2020-01-22 13:40 | disposition home or self-care (01) | DRG 163 ==
LOC: ERS 21:39 → CCU 21:45
PROVIDERS: ADMIT Internal Medicine; ATTEND Internal Medicine
PROC: 0BCF8ZZ Extirpation of Matter from Right Lower Lung Lobe, Via Natural or Artificial Opening Endoscopic (ICD-10-PCS; principal; 2020-01-16)
PROC: 0BCC8ZZ Extirpation of Matter from Right Upper Lung Lobe, Via Natural or Artificial Opening Endoscopic (ICD-10-PCS; 2020-01-16)
PROC: 0BCD8ZZ Extirpation of Matter from Right Middle Lung Lobe, Via Natural or Artificial Opening Endoscopic (ICD-10-PCS; 2020-01-16)
PROC: 0BH17EZ Insertion of Endotracheal Airway into Trachea, Via Natural or Artificial Opening (ICD-10-PCS; 2020-01-16)
PROC: 5A1945Z Respiratory Ventilation, 24-96 Consecutive Hours (ICD-10-PCS; 2020-01-16)
PROC: 0BC38ZZ Extirpation of Matter from Right Main Bronchus, Via Natural or Artificial Opening Endoscopic (ICD-10-PCS; 2020-01-16)
PROC: 0B9F8ZX Drainage of Right Lower Lung Lobe, Via Natural or Artificial Opening Endoscopic, Diagnostic (ICD-10-PCS; 2020-01-17)
PROC: 0WP9X0Z Removal of Drainage Device from Right Pleural Cavity, External Approach (ICD-10-PCS; 2020-01-21)
PROC: 0W9930Z Drainage of Right Pleural Cavity with Drainage Device, Percutaneous Approach (ICD-10-PCS; 2020-01-22)
DX: J69.0 Pneumonitis due to inhalation of food and vomit (principal); R40.2312 Coma scale, best motor response, none, at arrival to emergency department; R40.2112 Coma scale, eyes open, never, at arrival to emergency department; R40.2212 Coma scale, best verbal response, none, at arrival to emergency department; J96.01 Acute respiratory failure with hypoxia; J96.02 Acute respiratory failure with hypercapnia; J98.11 Atelectasis; J93.83 Other pneumothorax; F41.9 Anxiety disorder, unspecified; F31.9 Bipolar disorder, unspecified; F17.210 Nicotine dependence, cigarettes, uncomplicated; F15.10 Other stimulant abuse, uncomplicated; G40.909 Epilepsy, unspecified, not intractable, without status epilepticus; F13.10 Sedative, hypnotic or anxiolytic abuse, uncomplicated; D72.829 Elevated white blood cell count, unspecified; R73.9 Hyperglycemia, unspecified; D64.9 Anemia, unspecified; T65.91XA Toxic effect of unspecified substance, accidental (unintentional), initial encounter; Z78.1 Physical restraint status
CPT/HCPCS: 31500; 31624; 32551; 36415; 36416; 36600; 51702; 71045; 80048; 80053; 80306; 80307; 82550; 82805; 83036; 83605; 83690; 83735; 84100; 84484; 85025; 85027; 85610; 85730; 87635; 93005; 94002; 94003; 94640; 94760; 96365; 96366; 96375; 96376; 99292; C9113; J1630; J1650; J2060; J2250; J2543; J2704; J2765; J2920; J3010; J3411; J3475; J3490; J7050; J7512; J7620; U0003